=== PATIENT | female | born 1940 | race Asian ===

== ENCOUNTER 2018-05-20 11:14 | Day surgery (SDC) | payer OTHER ==
[2018-05-20 12:05] LABS: BASO % 0.8 % (0-2.0); EOS % 2.5 % (0-4.5); HEMATOCRIT 43.7 % (32.4-45.2); HEMOGLOBIN 14.4 GM/dL (10.7-15.3); LYMPH % 30.5 % (8-40); MCH 29.1 pg (25.7-33.7); MEAN CELL VOLUME 88.2 fl (80-96); MEAN PLT VOLUME 7.1 fl (7.5-11.1); MONO % 5.9 % (3.8-10.2); NEUT % 60.3 % (42.8-82.8); PLATELET COUNT 347 K/MM3 (134-434); RBC 4.96 M/mm3 (3.60-5.2); RDW 13.9 % (11.6-15.6)
[2018-05-20 12:07] VITALS: BMI 24.0
[2018-05-20 12:29] LABS: ANION GAP 5 MMOL/L (8-16); BLOOD UREA NITROGEN 17 mg/dL (7-18); CALCIUM 9.6 mg/dL (8.5-10.1); CHLORIDE 105 mmol/L (98-107); CO2 28 mmol/L (21-32); CREATININE 0.7 mg/dL (0.55-1.3); GLUCOSE,RANDOM 135 mg/dL (74-106); POTASSIUM 4.1 mmol/L (3.5-5.1); SODIUM 138 mmol/L (136-145)
[2018-05-20] MEDS ORDERED: LIDOCAINE VISCOUS 2% ORAL/TOP 20 ML UNIT-DOSE CUP ONE (13:14)
[2018-05-20] MEDS ORDERED: MIDAZOLAM HCL 2 MG/2 ML SINGLE DOSE VIAL ONE (13:20)
--- NOTE | 2018-05-20 16:48 | HP ---
CHIEF COMPLAINT: PCP: HISTORY OF PRESENT ILLNESS: This is a 77 yo F with PMH of relatively new persistent AF x year and a half, HTN, HLD, gastritis, who underwent KISHOR cardioversion x 2 earlier today due to uncontrolled AF rate. who was seen in the office, came in today for KISHOR guided cardioversion. She was cardioverted 6 times with 120 J to 200 J. Last shock resulted in prolonged pause resembling asystole. After getting Atropine she regained heart beat converted to sinus with bradycardia to 30's and pauses >3 < 6 sec. She was asymptomatic at that time (no cp, sob, cough, dizziness, syncope , palpitations). She was given atropine in endoscopy suite. This morning she took toprol xl 100 (taken BID). KISHOR: normal LV systolic function with moderate TR, mild MR and no thrombus in LA appendage. Recent Travel: denies PAST MEDICAL HISTORY: as above PAST SURGICAL HISTORY: cardiac cath several yrs ago negative for significant CAD Social History: Smoking: denies Alcohol: denies Drugs: denies Family History: sister heart issues Allergies No Known Allergies Allergy (Verified 05/20/18 11:57) HOME MEDICATIONS: Home Medications Medication Instructions Recorded Amlodipine Besylate [Norvasc -] 10 mg PO DAILY 05/20/18 Metoprolol Succinate 100 mg PO BID 05/20/18 Pravastatin Sodium [Pravachol] 40 mg PO DAILY 05/20/18 Rivaroxaban [Xarelto -] 20 mg PO DAILY 05/20/18 REVIEW OF SYSTEMS CONSTITUTIONAL: Absent: fever, chills HEENT: Absent: rhinorrhea, nasal congestion, throat pain CARDIOVASCULAR: Absent: chest pain, syncope, palpitations, lightheadedness, peripheral edema RESPIRATORY: Absent: cough, shortness of breath, orthopnea GASTROINTESTINAL: Absent: abdominal pain, abdominal distension, nausea, vomiting, diarrhea, constipation, melena, hematochezia GENITOURINARY: Absent: dysuria MUSCULOSKELETAL: Absent: back pain, neck pain SKIN: Absent: rash, itching, pallor HEMATOLOGIC/IMMUNOLOGIC: Absent: easy bleeding, easy bruising ENDOCRINE: Absent: heat intolerance, cold intolerance NEUROLOGIC: Absent: headache, focal weakness or paresthesias PSYCHIATRIC: Absent: anxiety, depression PHYSICAL EXAMINATION Vital Signs - 24 hr 05/20/18 05/20/18 05/20/18 11:58 14:20 14:40 Temperature 98.1 F 96.8 F L Pulse Rate 100 H 67 54 L Respiratory 16 16 18 Rate Blood Pressure 149/78 135/68 134/52 L O2 Sat by Pulse 97 95 93 L Oximetry (%) 05/20/18 05/20/18 05/20/18 15:04 15:24 15:39 Temperature Pulse Rate 39 L 65 65 Respiratory 18 18 18 Rate Blood Pressure 127/56 L 128/50 L 145/67 O2 Sat by Pulse 100 95 96 Oximetry (%) 05/20/18 16:25 Temperature Pulse Rate 46 L Respiratory 18 Rate Blood Pressure 127/61 O2 Sat by Pulse 95 Oximetry (%) GENERAL: Awake, alert, and fully oriented, in no acute distress. HEAD: Normal with no signs of trauma. EYES: Pupils equal, round and reactive to light, extraocular movements intact, sclera anicteric, conjunctiva clear. EARS, NOSE, THROAT: Moist mucous membranes. NECK: supple without JVD no bruits LUNGS: Breath sounds equal, clear to auscultation bilaterally. HEART: Regular rate and rhythm, normal S1 and S2, premature beats ABDOMEN: Soft, nontender, not distended, normoactive bowel sounds, no bruits MUSCULOSKELETAL: No CVA tenderness. UPPER EXTREMITIES: 2+ pulses, warm, well-perfused. No cyanosis. No clubbing. No peripheral edema. LOWER EXTREMITIES: 2+ pulses, warm, well-perfused. No calf tenderness. No peripheral edema. NEUROLOGICAL: Cranial nerves II-XII grossly intact. Normal speech. PSYCHIATRIC: Cooperative. Good eye contact. Appropriate mood and affect. SKIN: Warm, dry Laboratory Results - last 24 hr 05/20/18 05/20/18 11:55 11:55 WBC 6.0 RBC 4.96 Hgb 14.4 Hct 43.7 MCV 88.2 MCH 29.1 MCHC 33.0 RDW 13.9 Plt Count 347 MPV 7.1 L Absolute Neuts (auto) 3.6 Neutrophils % 60.3 Lymphocytes % 30.5 Monocytes % 5.9 Eosinophils % 2.5 Basophils % 0.8 Nucleated RBC % 0 Sodium 138 Potassium 4.1 Chloride 105 Carbon Dioxide 28 Anion Gap 5 L BUN 17 Creatinine 0.7 Creat Clearance w eGFR 81.36 Random Glucose 135 H Calcium 9.6 ASSESSMENT/PLAN: This is a 77 yo F with PMH of relatively new persistent AF x year and a half, HTN, HLD, gastritis, who underwent KISHOR cardioversion x 2 earlier today due to uncontrolled AF rate. AF poor rate controled D1 s/p elective KISHOR cardioversion complicated by asystole , bradycardia and pauses HTN HLD Gastritis -CHADSVASC4 -s/p atropine, now in NS 4-5 sec pauses on initial rythm strip, occasional sid in 30's -patient asymptomatic; possible causes include bb, post shock myocardial recovery, patients cardiac physiology -hold BB, f/y mag phos, TFTs, BMP -obs with tele monitoring -continue lipitor, keshia, continue NOAC -soft low na diet Problem List - Problem (1) HTN (hypertension) Code(s): I10 - ESSENTIAL (PRIMARY) HYPERTENSION (2) Hypercholesterolemia Code(s): E78.00 - PURE HYPERCHOLESTEROLEMIA, UNSPECIFIED (3) PAF (paroxysmal atrial fibrillation) Code(s): I48.0 - PAROXYSMAL ATRIAL FIBRILLATION (4) Sinus pause Code(s): I45.5 - OTHER SPECIFIED HEART BLOCK Visit type - Emergency Visit Emergency Visit: No - New Patient This patient is new to me today: Yes Date on this admission: 05/20/18 - Critical Care Critical Care patient: No
--- NOTE | 2018-05-20 17:09 | ECHO ---
Name: IM, SOOKJA Exam:Transesophageal Echocardiogram Study Date: 05/20/2018 01:35 PM Age: 77 yrs Reason For Study: A-Fib Height: 62 in Weight: 132 lb BSA: 1.6 m2 Procedure: A 2D transesophageal echocardiogram with Doppler and color flow Doppler was performed. Informed conse nt for Transesophageal Echocardiogram, and use of a contrast agent as needed, was obtained prior to the proc edure. The patient was brought to the endoscopy suite in a fasting state. An intravenous line was placed. A topical anesthetic agent was used for oropharangeal anesthesia. A bite block was inserted. IV concious sedati on was administered using propafol. A multifrequency, multiplane transesopheageal echocardiographic endoscop e was inserted and manipulated in the standard fashion to achieve multiplane views. The usual views were ob tained; basal, mid-esophageal, transgastric and aortic views. The patient's vital signs, including blood pres sure, heart rate, pulse oximetry and cardiac rhythm were monitored throughout the procedure and remained st able. The patient tolerated the procedure well without evidence of orophangeal or esophageal trauma. There were no complications. The patient was in atrial fibrillation with controlled ventricular rate during the exa m. Left Ventricle The left ventricle is normal in size. Left ventricular systolic function is normal. No regional wall motion abnormalities noted. Atria The left atrial size is normal. No thrombus is detected in the left atrial appendage. No left atrial mass or thrombus visualized. The interatrial septum is intact with no evidence for an atrial septal defect. I njection of contrast documented no interatrial shunt. Mitral Valve The mitral valve is grossly normal. There is mild mitral regurgitation. Tricuspid Valve The tricuspid valve is not well visualized, but is grossly normal. There is moderate tricuspid regurg itation. Aortic Valve The aortic valve is normal in structure and function. The aortic valve is trileaflet. No aortic regur gitation is present. Pulmonic Valve The pulmonic valve is not well visualized. Mild pulmonic valvular regurgitation. Great Vessels No evidence of atherosclerotic plaque in thoracic aorta or aortic arch. Pericardium/Pluera There is no pericardial effusion. Interpretation Summary The left ventricle is normal in size. Left ventricular systolic function is normal. No regional wall motion abnormalities noted. The left atrial size is normal. No thrombus is detected in the left atrial appendage. No left atrial mass or thrombus visualized. The interatrial septum is intact with no evidence for an atrial septal defect. Injection of contrast documented no interatrial shunt. There is mild mitral regurgitation. There is moderate tricuspid regurgitation. Mild pulmonic valvular regurgitation. No evidence of atherosclerotic plaque in thoracic aorta or aortic arch There is no pericardial effusion. Luis Nash MD 05/20/2018 05:08 PM
--- NOTE | 2018-05-20 17:15 | CON.CARD ---
Consult Consult Specialty:: Cardiology Reason for Consultation:: Cardiac evaluation - History of Present Illness Chief Complaint: Bradycardia History of Present Illness: Patient is a 77 year old [place] female who was seen in the office, came in today for KISHOR guided cardioversion. She has underlying history of AF on DOAC ( Xarelto), HTN, hypercholesterolemia and gastritis. She was in her USOH. KISHOR revealed normal LV systolic function with moderate TR, mild MR and no thrombus in LA appendage. Cardioversion was attempted 6 times with 120 J to 200 J. Last attempt was followed by prolonged pause to a degree of what appeared to be asystole. She was given Atropine and she regained her heart beat and she converted to sinus rhythm. During recovery in endo unit, she was noted to exhibit bradycardia to 30's and also have pauses more than 3 seconds. She remained awake and alert without any symptoms. She denies chest pain, SOB or palpitations. She denies paroxysmal nocturnal dyspnea or orthopnea. She denies fever or chills. She denies nausea, vomiting, diarrhea or abdominal pain, She denies headache or lightheadedness. She was referred for admission as observation. - History Source History Provided By: Patient, Medical Record Limitations to Obtaining History: No Limitations - Past Medical History Cardio/Vascular: Yes: AFIB, HTN, Hyperlipdemia Gastrointestinal: Yes: Gastritis - Past Surgical History Past Surgical History: Yes: None - Alcohol/Substance Use Hx Alcohol Use: No - Smoking History Smoking history: Never smoked Have you smoked in the past 12 months: No Home Medications - Allergies Allergies/Adverse Reactions: Allergies Allergy/AdvReac Type Severity Reaction Status Date / Time No Known Allergies Allergy Verified 05/20/18 11:57 - Home Medications Home Medications: Ambulatory Orders Amlodipine Besylate [Norvasc -] 10 mg PO DAILY 05/20/18 Metoprolol Succinate 100 mg PO BID 05/20/18 Pravastatin Sodium [Pravachol] 40 mg PO DAILY 05/20/18 Rivaroxaban [Xarelto -] 20 mg PO DAILY 05/20/18 Family Disease History - Family Disease History Family History: Denies Review of Systems - Review of Systems Constitutional: denies: Chills, Fever Cardiovascular: denies: Chest Pain, Palpitations, Shortness of Breath Respiratory: denies: Cough, Hemoptysis, Orthopnea Gastrointestinal: denies: Abdominal Pain, Constipation, Diarrhea, Melena, Nausea , Rectal Bleeding, Vomiting Genitourinary: denies: Dysuria, Hematuria Musculoskeletal: denies: Back Pain, Joint Pain Neurological: denies: Dizziness, Headache, Seizure, Syncope Vital Signs: Vital Signs Temperature 96.8 F L 05/20/18 14:20 Pulse Rate 51 L 05/20/18 16:53 Respiratory Rate 18 05/20/18 16:53 Blood Pressure 131/52 L 05/20/18 16:53 O2 Sat by Pulse Oximetry (%) 98 05/20/18 16:53 Constitutional: Yes: Well Nourished Eyes: Yes: Conjunctiva Clear, PERRL HENT: Yes: Atraumatic Neck: Yes: Supple Respiratory: Yes: CTA Bilaterally Gastrointestinal: Yes: Normal Bowel Sounds, Soft. No: Tenderness Cardiovascular: Yes: Regular Rate and Rhythm JVD: No Carotid Bruit: No PMI: Non-Displaced Heart Sounds: Yes: S1, S2. No: Gallop Murmur: Yes: Systolic Murmur, Grade 1 Edema: No - Other Data Labs, Other Data: CBC, BMP 05/20/18 11:55 05/20/18 11:55 Sinus rhythm Problem List - Problems (1) PAF (paroxysmal atrial fibrillation) Code(s): I48.0 - PAROXYSMAL ATRIAL FIBRILLATION (2) HTN (hypertension) Code(s): I10 - ESSENTIAL (PRIMARY) HYPERTENSION (3) Hypercholesterolemia Code(s): E78.00 - PURE HYPERCHOLESTEROLEMIA, UNSPECIFIED (4) Sinus pause Code(s): I45.5 - OTHER SPECIFIED HEART BLOCK Assessment/Plan 1. PAF s/p KISHOR guided cardioversion to sinus rhythm 2. Pauses and bradycardia might represent post cardioversion effect vs. sick sinus syndrome 3. HTN 4. Hypercholesterolemia 5. Gastritis PLAN: 1. Hold Metoprolol 2. Continue Xarelto 20 mg QD 3. Continue Amlodipine and Pravastatin 4. cardiac monitor at least overnight. Further plans are to be discussed in AM 5. Attached Holter monitor Luis Nash MD
--- NOTE | 2018-05-20 18:46 | PN ---
Teaching Attending Note Name of Resident: Carmelina Mortensen ATTENDING PHYSICIAN STATEMENT I saw and evaluated the patient. I reviewed the resident's note and discussed the case with the resident. I agree with the resident's findings and plan as documented. SUBJECTIVE: Feels well, denies any chest pain/palpitations/SOB/lightheadedness OBJECTIVE: Afebrile, Hemodynamically Stable. Last Vital Signs Temp Pulse Resp BP Pulse Ox 98.1 F 80 22 H 130/80 98 05/20/18 17:30 05/20/18 17:30 05/20/18 17:30 05/20/18 17:30 05/20/18 16:53 HEENT - Atraumatic, Normocephalic. Heart - S1, S2, RRR Lungs - clear to auscultation Abdomen - soft, non-tender. Bowel Sounds normal. Laboratory Results - last 24 hr 05/20/18 05/20/18 11:55 11:55 WBC 6.0 RBC 4.96 Hgb 14.4 Hct 43.7 MCV 88.2 MCH 29.1 MCHC 33.0 RDW 13.9 Plt Count 347 MPV 7.1 L Absolute Neuts (auto) 3.6 Neutrophils % 60.3 Lymphocytes % 30.5 Monocytes % 5.9 Eosinophils % 2.5 Basophils % 0.8 Nucleated RBC % 0 Sodium 138 Potassium 4.1 Chloride 105 Carbon Dioxide 28 Anion Gap 5 L BUN 17 Creatinine 0.7 Creat Clearance w eGFR 81.36 Random Glucose 135 H Calcium 9.6 Current Medications Generic Name Dose Route Start Last Admin Trade Name Freq PRN Reason Stop Dose Admin Amlodipine Besylate 10 mg 05/21/18 10:00 Norvasc - PO DAILY [facility] Atorvastatin Calcium 40 mg 05/20/18 22:00 Lipitor - PO HS [facility] Rivaroxaban 20 mg 05/21/18 18:00 Xarelto - PO DAILY@1800 [facility] ASSESSMENT AND PLAN: 77 year old female with Atrial Fibrillation, HTN, HLD, GERD, s/p KISHOR Cardioversion x 6 today with asystolic event s/p Atropine and subsequent long pauses/bradycardia. She remains asymptomatic without chest pain/palpitations/ lightheadedness. KISHOR: normal LV systolic function with moderate TR, mild MR and no thrombus in LA appendage. 1. Atrial Fibrillation s/p Cardioversion - now in SR Asystolic event s/p Shock no 6 with subsequent pauses/bradycardia Admit to telemetry for monitoring overnight as per Cardiology Sr[facility] [employer]. Will hold further BB. Continue Xarelto 2. HTN - Continue Norvasc, hold Metoprolol 3. HLD - Continue Pravastatin DVT Px - on Xarelto
[2018-05-20] MEDS ORDERED: ATORVASTATIN CA 40 MG TABLET (FP) PO SCH (22:00)
[2018-05-21 09:41] VITALS: BP 138/72; PULSE 93; TEMP 98.5
--- NOTE | 2018-05-21 09:53 | PN ---
Progress Note, Physician Chief Complaint: Currently in AF Not in distress Wanting to go home History of Present Illness: Patient was seen and examined. Awake and alert. Chart was reviewed Denies chest pain, SOB or palpitations - Current Medication List Current Medications: Active Medications Amlodipine Besylate (Norvasc -) 10 mg PO DAILY [facility] Atorvastatin Calcium (Lipitor -) 40 mg PO HS [facility] Last Admin: 05/20/18 22:06 Dose: 40 mg Rivaroxaban (Xarelto -) 20 mg PO DAILY@1800 [facility] - Objective Vital Signs: Vital Signs Temperature 98.5 F 05/21/18 08:00 Pulse Rate 93 H 05/21/18 08:00 Respiratory Rate 18 05/21/18 08:00 Blood Pressure 138/72 05/21/18 08:00 O2 Sat by Pulse Oximetry (%) 95 05/20/18 21:15 Eyes: Yes: Conjunctiva Clear, PERRL HENT: Yes: Atraumatic Neck: Yes: Supple Cardiovascular: Yes: Pulse Irregular, Murmur (Soft SM), S1, S2 Respiratory: Yes: CTA Bilaterally Gastrointestinal: Yes: Normal Bowel Sounds, Soft. No: Tenderness Edema: No Additional Findings/Remarks: - Review of Systems Constitutional: denies: Chills, Fever Cardiovascular: denies: Chest Pain, Palpitations, Shortness of Breath Respiratory: denies: Cough, Hemoptysis, Orthopnea Gastrointestinal: denies: Abdominal Pain, Constipation, Diarrhea, Melena, Nausea , Rectal Bleeding, Vomiting Genitourinary: denies: Dysuria, Hematuria Musculoskeletal: denies: Back Pain, Joint Pain Neurological: denies: Dizziness, Headache, Seizure, Syncope Labs: CBC, BMP 05/20/18 11:55 05/20/18 11:55 Problem List - Problems (1) PAF (paroxysmal atrial fibrillation) Code(s): I48.0 - PAROXYSMAL ATRIAL FIBRILLATION (2) HTN (hypertension) Code(s): I10 - ESSENTIAL (PRIMARY) HYPERTENSION (3) Hypercholesterolemia Code(s): E78.00 - PURE HYPERCHOLESTEROLEMIA, UNSPECIFIED (4) Sinus pause Code(s): I45.5 - OTHER SPECIFIED HEART BLOCK Assessment/Plan 1. PAF s/p KISHOR guided cardioversion to sinus rhythm now recurrence of AF 2. Pauses and bradycardia might represent post cardioversion effect vs. sick sinus syndrome 3. HTN 4. Hypercholesterolemia 5. Gastritis PLAN: 1. Resume Metoprolol 50 mg BID 2. Continue Xarelto 20 mg QD 3. Continue Amlodipine and Pravastatin 4. Holter monitor can be taken off and patient may be discharged home today Luis Nash MD
[2018-05-21] MEDS ORDERED: amLODIPine BESYLATE 10 MG TABLET (FP) PO SCH (10:00)
[2018-05-21] MEDS ORDERED: PT OWN MED DRAWER 7, Y5N ONE (10:47)
--- NOTE | 2018-05-21 11:02 | EKG ---
Test Reason : Blood Pressure : / mmHG Vent. Rate : 060 BPM Atrial Rate : 060 BPM P-R Int : 168 ms QRS Dur : 082 ms QT Int : 450 ms P-R-T Axes : 056 -08 028 degrees QTc Int : 450 ms NORMAL SINUS RHYTHM NORMAL ECG NO PREVIOUS ECGS AVAILABLE Confirmed by MD Flower, Juan Alberto ([id number]) on 05/21/2018 11:02:26 AM Referred By: Luis Nash Confirmed By:Juan Alberto Crenshaw MD
--- NOTE | 2018-05-21 11:10 | EKG ---
Test Reason : Blood Pressure : / mmHG Vent. Rate : 095 BPM Atrial Rate : 122 BPM P-R Int : 000 ms QRS Dur : 084 ms QT Int : 364 ms P-R-T Axes : 000 -14 -33 degrees QTc Int : 457 ms ATRIAL FIBRILLATION NONSPECIFIC ST AND T WAVE ABNORMALITY ABNORMAL ECG WHEN COMPARED WITH ECG OF 20-MAY-2018 14:44, ATRIAL FIBRILLATION HAS REPLACED SINUS RHYTHM VENT. RATE HAS INCREASED BY 35 BPM Confirmed by MD Flower, Juan Alberto ([id number]) on 05/21/2018 11:09:45 AM Referred By: Luis Nash Confirmed By:Juan Alberto Crenshaw MD
--- NOTE | 2018-05-21 11:42 | PN ---
Teaching Attending Note Name of Resident: Petar Franco ATTENDING PHYSICIAN STATEMENT I saw and evaluated the patient. I reviewed the resident's note and discussed the case with the resident. I agree with the resident's findings and plan as documented. SUBJECTIVE:asymptomatic. denies CP, SOB, fever, chills, cough, palpitations or dizzyness OBJECTIVE: Last Vital Signs Temp Pulse Resp BP Pulse Ox 98.5 F 93 H 18 138/72 95 05/21/18 08:00 05/21/18 08:00 05/21/18 08:00 05/21/18 08:00 05/20/18 21:15 General NAD CV S1 S2 RRR no murmur/rub/gallop Lungs CTA B/L no wheezing/rales/rhonchi ASSESSMENT AND PLAN: 77 year old female with Atrial Fibrillation, HTN, HLD, GERD, s/p KISHOR Cardioversion x 6 today with asystolic event s/p Atropine and subsequent long pauses/bradycardia. She remains asymptomatic without chest pain/palpitations/ lightheadedness. 1. Atrial Fibrillation s/p Cardioversion x6- now in NSR. had some significant pauses overnight. however had remained asymptomatic. seen by cardio. plan to resume metoprolol at lower dose and xarelto. cardio follow up as outpatient 2. HTN - controlled. cont medications 3. HLD - Continue Pravastatin 4. DVT Px - on Xarelto 5. spoke with children present at bedside. all questions answered. d/c home
--- NOTE | 2018-05-21 12:12 | DS ---
Physical Exam: SUBJECTIVE: Patient seen and examined. Pt. denies any complaints this morning and denies any symptoms overnight. Pt. and daughter at bedside asking when they are allowed to leave. OBJECTIVE: Vital Signs Period Temp Pulse Resp BP Sys/Montilla Pulse Ox Last 24 Hr 96.8 F-98.9 F 39-93 16-22 103-145/50-80 93-100 PHYSICAL EXAM GENERAL: The patient is awake, alert, and fully oriented, in no acute distress. HEAD: Normal with no signs of trauma. EYES: PERRL, extraocular movements intact, sclera anicteric, conjunctiva clear. ENT: Ears normal, nares patent, oropharynx clear without exudates, moist mucous membranes. NECK: Trachea midline, full range of motion, no carotid bruit, supple. LUNGS: Breath sounds equal, clear to auscultation bilaterally, no wheezes, no crackles, no accessory muscle use. HEART: Regular rate and rhythm, S1, S2 without murmur, rub or gallop. ABDOMEN: Soft, nontender, nondistended, normoactive bowel sounds, no guarding, no rebound EXTREMITIES: 2+ radial pulses, warm, well-perfused, no edema. NEUROLOGICAL: Normal speech, gait not observed. PSYCH: Normal mood, normal affect. SKIN: Warm, dry, normal turgor, no rashes or lesions noted. LABS Laboratory Results - last 24 hr 05/20/18 11:55 Sodium 138 Potassium 4.1 Chloride 105 Carbon Dioxide 28 Anion Gap 5 L BUN 17 Creatinine 0.7 Creat Clearance w eGFR 81.36 Random Glucose 135 H Calcium 9.6 HOSPITAL COURSE: Date of Admission:05/20/18 Date of Discharge: 05/21/18 Pt. is a 77 y.o. observed overnight after having a prolonged pause during a cardioversion procedure for persistent Afib for 1.5 years. Atropine was pushed which resulted in return of heart beat. Pt. denied any complaints of symptoms during or after procedure. Pt. transferred to telemetry and observed overnight without acute events. Consult to Dr. Nash appreciated and medications were adjusted as detailed below. Hospital course discussed and agreed upon with Pt. medical staff and family. Minutes to complete discharge: 35 Discharge Summary Reason For Visit: UNSPEC ATRIAL FIB/PURE HYPERCHOLESTEROLEMIA Current Active Problems Sinus pause (Acute) HTN (hypertension) (Chronic) Hypercholesterolemia (Chronic) PAF (paroxysmal atrial fibrillation) (Chronic) Condition: Improved - Instructions Diet, Activity, Other Instructions: You came in to have treatment for your Atrial Fibrillation. During the treatment you heart paused for a few seconds, we gave you treatment that resolved the pause. We monitored you on telemetry over night. You had no new events or complaints during this time. We have made changes to your medications. We have decreased you Metoprolol to 50mg. Please take Metoprolol 50mg TWICE a day Please resume your other home medications as they were prescribed. Xarelto 20mg ONCE a day Norvasc 10mg ONCE a day Pravastin 40mg ONCE a day Please follow up with Dr. Nash within 1 week for follow-up to the treatment. Please follow up with your Primary Care Physician within 1 week. If you do not have one we have provided one for you, (Dr. Perez) Please return to the ED if you are experiencing chest pain, shortness of breath , lightheadedness, sudden changes in vision or any concerning symptoms. Referrals: Easton Perez MD [Staff Physician] - Luis Nash MD [Staff Physician] - 1 Week Disposition: HOME - Home Medications Comprehensive Discharge Medication List: Ambulatory Orders Amlodipine Besylate [Norvasc -] 10 mg PO DAILY 05/20/18 Pravastatin Sodium [Pravachol] 40 mg PO DAILY 05/20/18 Rivaroxaban [Xarelto -] 20 mg PO DAILY 05/20/18 Metoprolol Succinate [Toprol XL -] 50 mg PO BID #60 tab.sr.24h 05/21/18 This patient is new to me today: Yes Date on this admission: 05/26/18 Emergency Visit: Yes Care time: The patient presented to the Emergency Department on the above date and was hospitalized for further evaluation of their emergent condition. Critical Care patient: No - Discharge Referral Referred to [facility] No
[2018-05-21] MEDS ORDERED: RIVAROXABAN 20 MG TABLET PO SCH (18:00)
--- NOTE | 2018-05-22 12:40 | HOL ---
Hook-up date: 2018-05-20 15:57:00 Duration: 20:14:00 Test Indications: AF POST CARDIOVERSION WITH PAUSE Medications: 61408 QRS complexes 44 Ventricular ectopics which represent <1 % of total QRS comp. 106 Supraventricular ectopics which represent <1 % of total QRS comp. * Paced QRS complexs which represent % of total QRS comp. * % of Time Classified as Noise VENTRICULAR ECTOPY 44 Isolated 0 Bigeminal Cycles 0 Couplets 0 Runs 0 Beats in Runs * Beats LONGEST at * BPM at :: -- * Beats FASTEST at * BPM at :: -- SUPRAVENTRICULAR ECTOPY 102 Isolated 2 Couplets 0 Runs 0 Beats in Runs * Beats LONGEST at * BPM at :: -- * Beats FASTEST at * BPM at :: -- HEART RATES 30 MIN at 17:31:45 2018-05-20 72 AVG 169 MAX at 09:33:18 2018-05-21 LONGEST RR 2.832 secs at 17:02:50 2018-05-20 nsr with frequent sinus pauses and junctional escape complexes. Longest pause 2.8s. Second part of the study shows Atrial fibrilation with frequent pauses fastest VR during AF is 169 BPM. Confirmed by CAM CONTRERAS MD ([id number]) on 05/22/2018 12:39:54 PM Referred By: Luis Nahs Overread By: CAM CONTRERAS MD
== END 2018-05-21 12:27 | disposition home or self-care (01) ==
LOC: SUATTDRO 11:14 → JASU-ENDO 11:14 → UNDOADMOB 11:15 → J4W 11:15 → JSAMEDAYSX 11:15 → J4W 17:23 → JASU-ENDO 05-21 12:27
PROVIDERS: ATTEND Internal Medicine
PROC: 5A2204Z Restoration of Cardiac Rhythm, Single (ICD-10-PCS; 2018-05-20)
PROC: B246ZZ4 Ultrasonography of Right and Left Heart, Transesophageal (ICD-10-PCS; principal; 2018-05-20 12:00)
DX: I48.0 Paroxysmal atrial fibrillation (principal); Z79.01 Long term (current) use of anticoagulants; I10 Essential (primary) hypertension; E78.00 Pure hypercholesterolemia, unspecified
CPT/HCPCS: 36415; 80048; 85025; 92960; 93005; 93010; 93225; 93226; 93312; 93325